=== PATIENT | male | born 1960 | race Caucasian/White ===

== ENCOUNTER 2021-03-12 09:45 | Emergency (ER) | payer SELFPAY ==
[~2021-03-12] VITALS: Ht 165.1 cm; Wt 64.3 kg
[2021-03-12 09:47] VITALS: BP 181/114
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
--- NOTE | 2021-03-12 10:10 | NUR ---
PA AT BS
--- NOTE | 2021-03-12 10:13 | NUR ---
PT SITTING ON GURNEY, MONITORS IN PLACE. CALL LIGHT WITHIN REACH. NO NEEDS AT THIS TIME
[2021-03-12] MEDS ORDERED: KETOROLAC 30 MG/1 ML ONE (10:17)
[2021-03-12] MEDS ORDERED: KETOROLAC 30 MG/1 ML IM ONE (10:30)
--- NOTE | 2021-03-12 10:38 | NUR ---
Patient given discharge instructions and RX, they have confirmed that they understand the instructions. Patient ambulatory with steady gait.
== END 2021-03-12 10:42 | disposition home or self-care (01) ==
LOC: ED 10:40
DX: M25.512 Pain in left shoulder (principal); G89.29 Other chronic pain
CPT/HCPCS: 73030; 96372; 99283; J1885